=== PATIENT | female | born 1965 | race Caucasian/White ===

== ENCOUNTER 2020-02-07 12:00 | Outpatient (CLI) | payer OTHER, SELFPAY ==
--- NOTE | ~2020-02-07 | XR_ITS ---
XR sacroiliac joints min 3V DATE: 02/07/2020 13:52 INDICATION: Anti-COMPLEX DIRECTOR antibodies (Associated with lupus, other connective tissue diseases, edvin. mixed connective tissue disease). SS-A antibody (positive result consistent with connective tissue disease, including Sjogren syndrome, lupus erythematosus or rheumatoid arthritis). Arthralgia. Low back jailyn n radiating to left leg. TECHNIQUE: AP and bilateral oblique views COMPARISON: None FINDINGS: No fracture or dislocation is evident at the sacroiliac joints. There is some spurring at t he sacroiliac joints. There is sclerosis bilaterally consistent with osteitis condensans ilii. No ero sive changes or ankylosis. IMPRESSION: Degenerative change and osteitis condensans ilii Reviewed, dictated and finalized at Location [facility]. Reviewed, dictated and finalized at location A.
--- NOTE | 2020-02-07 14:18 | ECHO_ITS ---
Patient Info Name: Rosio Byrne Age: 54 years : 1965 Gender: Female Ht: 60 in Wt: 320 lbs BSA: 2.59 m2 HR: 69 bpm BP: 139 / 63 mmHg Technical Quality: Fair Exam Date: 02/07/2020 12:51 PM Exam Location: [facility] Patient Status: Outpatient Admit Date: 02/07/2020 Staff Ordering Physician: Domi Street DO Sports Medicine Specialist: Jocelin Villarreal RDCS Attending Provider: Domi Street DO Referring Physician: Yenifer RAMOS; Exam Type: CA echo dop color flow w con Study Info Indications I27.9 - Pulmonary heart disease, unspecified Complete two-dimensional, color flow and Doppler transthoracic echocardiogram is performed with contrast to opacify the left ventrical and to improve the deliniation of the left ventrical endocarial boarders. Contrast/Agitated Saline Contrast/Ag. Saline: Definity Amount: 9.00 ml IV Access Condition: patent with no signs of infiltration New IV Access: Antecubital Space and Left Site Condition: IV removed, No extravasation and Site dressing applied History/Risk Factors Hypertension: Yes Dyslipidemia: Yes Date of Last Tobacco Use: 02/07/2020 Tobacco Use: Current - Every Day If Any Current, Tobacco Type: Cigarettes If Current - Every Day \T\ Cigarettes, Amount: Light Tobacco Use (<10/day) Family History: Diabetes Mellitus Summary 1. Left ventricular chamber dimension is normal. 2. Definity contrast administered improved wall motion interpretation. 3. Left ventricular systolic function is normal, estimated at 60-65%. 4. There is moderately increased left ventricular wall thickness. 5. The left ventricular diastolic function is normal. 6. Tissue doppler is not performed. 7. The mitral valve has moderately calcified annulus. Recommendations * Smoking cessation counseling is recommended for this patient. Left Ventricle Tissue doppler is not performed. Definity contrast administered improved wall motion interpretation. Left ventricular chamber dimension is normal. Left ventricular systolic function is normal, estimated at 60-65%. There is moderately increased left ventricular wall thickness. The left ventricular diastolic function is normal. Right Ventricle Right ventricular chamber dimension is not well visualized. Left Atria Left atrial chamber dimension is normal. Right Atria Right atrial chamber dimension is not well visualized. Aortic Valve The aortic valve is trileaflet. There is no aortic valve stenosis. There is no aortic valve regurgitation. Pulmonic Valve The pulmonic valve is not well visualized. Mitral Valve The mitral valve has moderately calcified annulus. There is no mitral valve stenosis. There is no mitral valve regurgitation. Tricuspid Valve There is no tricuspid valve regurgitation. Pericardium/Pleural There is no pericardial effusion. Inferior Vena Cava Normal inferior vena cava with >50% collapse upon inspiration consistent with normal right atrial pressure, 5 mmHg. Aorta The aortic root size at the sinus of Valsalva is normal. Left Ventricular Outflow Tract Name Value Normal LVOT 2D LVOT Diameter 1.76 cm LV
== END 2020-02-07 12:01 | disposition home or self-care (01) ==
LOC: CHSIMG 12:01
PROVIDERS: PCP Family Medicine; Visit Provider Internal Medicine
DX: R76.8 Other specified abnormal immunological findings in serum (principal); M25.50 Pain in unspecified joint; Z15.89 Genetic susceptibility to other disease; M54.9 Dorsalgia, unspecified; G89.29 Other chronic pain
CPT/HCPCS: 72202; 94060; 94726; 94729; C8929

== ENCOUNTER 2020-03-22 11:07 | Outpatient (CLI) | payer OTHER, SELFPAY ==
--- NOTE | ~2020-03-22 | XR_ITS ---
EXAMINATION: XR shoulder RT min 2V DATE: 03/22/2020 11:24 INDICATION: Right shoulder pain. Lupus flareup. TECHNIQUE: AP internally and externally rotated, AP oblique externally rotated and transscapular Y vi ews of the right shoulder were obtained. COMPARISON: 08/05/2018 FINDINGS: Normal alignment. No fracture.Severe glenohumeral osteoarthritis with essentially [id number] appos ition and remodeling of the humeral head and acetabulum. Large marginal osteophytes along the inferio r humeral head. Mild acromioclavicular joint osteoarthritis. Visualized portions of the right lung ar e clear. Soft tissues are unremarkable. IMPRESSION: Severe right glenohumeral osteoarthritis and mild acromioclavicular osteoarthritis. Reviewed, dictated and finalized at location A. IMPRESSION: Severe right glenohumeral osteoarthritis and mild acromioclavicular osteoarthri tis.
== END 2020-03-22 11:08 | disposition home or self-care (01) ==
LOC: CHSLAB 11:09 → CHSIMG 11:12
PROVIDERS: PCP Family Medicine; Visit Provider Family Medicine
DX: M25.511 Pain in right shoulder (principal)
CPT/HCPCS: 73030

== ENCOUNTER 2020-03-23 08:56 | Outpatient (RCR) | payer OTHER, SELFPAY ==
--- NOTE | 2020-03-23 10:03 | PTOPEVAL ---
Thank you for referring Rosio Byrne to [facility]. Please review, sign, date and return this plan of care AYUSH. I agree with and certify that the following plan of care is medically necessary. Referring Physician Date Admitting Provider: Attending Provider: Ariel Rahman MD Referring Provider: *PT Outpatient Evaluation Start: 03/23/20 09:01 Freq: Status: Active Protocol: Document 03/23/20 09:00 J (Rec: 03/23/20 09:29 [facility] [id number]) Therapy Assessment Status Assessment Status Assessment Status Evaluation Outpatient Past Medical History Past Medical History Other Source of Past Medical History see patient intake form Cardiovascular History Hx Hypercholesterolemia Yes Hx Hypertension Yes Musculoskeletal History Hx Orthopedic Surgery Yes: carpal tunnel, Rt. elbow Psychosocial History Hx Depression Yes Evaluation Information Problem Diagnosis R shoulder pain Onset 03/18/20 Additional Evaluation Detail quick dash = 61% Subjective Information patient reports she has pain Query Text:As Reported By Patient/ in the R shoulder. she reports Family she has been told by her MD it is a flare up of arthritic pain in the shoulder. she reports she has a history of lupus. she reports the pain started and has gotten worse within the last 2 weeks. she reports the pain runs from a 4 -7/10 most of the time now. 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 she reports she has NTB in the R arm (to the wrist ). she reports shoulder pain pain is superior and posterior of the shoulder. Prior Level of Function Comments Additional Prior Level of Function patient reports prior to a few Comments weeks ago she always had a bit of pain, but was able to complete her daily activities. she reports she has some decreased mobility in the R shoulder. she reports a history of carpal and cubital back in March of last year. Pain Assessment Timing of Pain Assessment Timing of Pain Assessment Assessment Pain Scale Pain Scale Used Numeric (1 - 10) Self Report Pain Assessm
--- NOTE | 2020-04-06 09:10 | PCPTNOTE ---
patient cancelled appt today due to having a low grade fever. MELISSA
--- NOTE | 2020-04-20 09:12 | PCPTNOTE ---
patient called and cancelled appt due to not feeling well. MELISSA
--- NOTE | 2020-05-03 15:55 | PTOPEVAL ---
Thank you for referring Rosio Byrne to [facility]. Please review, sign, date and return this plan of care AYUSH. I agree with and certify that the following plan of care is medically necessary. Referring Physician Date Admitting Provider: Attending Provider: Ariel Rahman MD Referring Provider: *PT Outpatient Evaluation Start: 03/23/20 09:01 Freq: Status: Active Protocol: Document 05/03/20 10:00 JTF (Rec: 05/03/20 15:55 J [email or web address]) Therapy Assessment Status Assessment Status Assessment Status Re-evaluation Outpatient Past Medical History Past Medical History Other Source of Past Medical History see patient intake form Cardiovascular History Hx Hypercholesterolemia Yes Hx Hypertension Yes Musculoskeletal History Hx Orthopedic Surgery Yes: carpal tunnel, Rt. elbow Psychosocial History Hx Depression Yes Evaluation Information Problem Diagnosis R shoulder pain Additional Evaluation Detail quick dash = 59% Subjective Information patient reports she feels Query Text:As Reported By Patient/ alright this date. she Family reports she still has pain and popping in the R shoulder with lifting, especially overhead and behind back. she reports she is better, but still has increased pain with increased activities. she reports she is no longer working. Pain Assessment Timing of Pain Assessment Timing of Pain Assessment Assessment Pain Scale Pain Scale Used Numeric (1 - 10) Self Report Pain Assessment Right Shoulder(s) Reported Pain Level 5 Greatest Pain Intensity 7 Pain Score Pain Score 5: Self Report Upper Extremity Range of Motion General Upper Extremity Range of Motion Gross Upper Extremity Range of Motion R shoulder arom flexion = 135 Comments degrees R shoulder prom flexion = 150 degrees functional IR and ER reach unchanged since initial evaluation Upper Extremity Muscle Strength Testing General Upper Extremity Strength Gross Upper Extremity Strength Comments R shoulder flex = 4-/5, abd = 4-/5, er = 4/5, ir = 4+/5. PT Clinical Summary Clinical Summary Protocol: PTEVCODE PT Clinical Summary ms. byrne tolerates therapy well this date. she presents with pain still in the R sriram
--- NOTE | 2020-05-30 09:54 | PCPTNOTE ---
patient called and cancelled appt today due to being in er yesterday. MELISSA
== END 2020-06-07 10:31 | disposition home or self-care (01) ==
LOC: CHSPT 08:56
PROVIDERS: PCP Family Medicine; Visit Provider Family Medicine
DX: M25.511 Pain in right shoulder (principal)
CPT/HCPCS: 97014; 97110; 97161; G0283

== ENCOUNTER 2020-04-06 12:09 | Outpatient (CLI) | payer OTHER, SELFPAY ==
--- NOTE | ~2020-04-06 | XR_ITS ---
XR chest 2V 04/06/2020 12:56 Indication: Cough, shortness of breath and fever Procedure: PA and lateral views of the chest Comparison: Comparison to multiple prior studies sequentially, with oldest reviewed study dated 01/2016. Findings: There are mild bilateral perihilar interstitial infiltrates. Heart size is normal. No pleur al effusion or pneumothorax. No acute osseous abnormality. Impression: 1: Mild bilateral perihilar interstitial infiltrates which may represent mild edema or atypical pneum onia. Reviewed, dictated and finalized at location A. Impression: 1: Mild bilateral perihilar interstitial infiltrates which may represent mild e leanne or atypical pneumonia.
[2020-04-06 12:53] LABS: Basophils Absolute Auto 0.03 K/mm3 (0.00-0.10); Basophils Percent Auto 0.3 % (0.0-1.0); Eosinophils Absolute Auto 0.26 K/mm3 (0.02-0.50); Eosinophils Percent Auto 2.9 % (1.0-6.0); Hematocrit 39.9 % (35.0-49.0); Hemoglobin 13.3 g/dL (12.0-15.0); Immature Granulocyte Absolute 0.05 K/mm3 (0.00-0.00); Immature Granulocyte Percent A 0.5 % (0.0-0.0); Lymphocytes Absolute Auto 3.05 K/mm3 (1.10-4.50); Lymphocytes Percent Auto 33.4 % (18.0-42.0); Mean Corpuscular HGB Conc 33.3 g/dL (32.0-36.0); Mean Corpuscular Hemoglobin 30.5 pg (27.0-31.0); Mean Corpuscular Volume 91.5 fL (78.0-102.0); Mean Platelet Volume 8.9 fl (9.2-11.8); Monocytes Absolute Auto 0.63 K/mm3 (0.10-0.90); Monocytes Percent Auto 6.9 % (2.0-11.0); Neutrophils Absolute Auto 5.1 K/mm3 (1.7-7.2); Platelet Count Result 362 K/mm3 (150-420); Red Blood Count 4.36 M/mm3 (4.20-5.40); Red Cell Distribution Width 15.1 % (11.6-14.4); White Blood Count 9.1 K/mm3 (4.8-10.8)
[2020-04-06 13:05] LABS: Anion Gap 14.3 mmol/L (7-16); Blood Urea Nitrogen 20 mg/dL (7-18); Calcium 9.4 mg/dL (8.5-10.1); Carbon Dioxide 27 mmol/L (21-32); Chloride 104 mmol/L (98-108); Estimated Glomerular Filt Rate > 60; Glucose 103 mg/dL (70-99); Osmolality Calculated 294 mOsm/kg (285-295); Potassium 4.3 mmol/L (3.5-5.1); Sodium 141 mmol/L (136-145)
[2020-04-06 13:10] LABS: Influenza Control Valid (Valid)
== END 2020-04-06 12:10 | disposition home or self-care (01) ==
PROVIDERS: PCP Family Medicine; Visit Provider Family Medicine
DX: R05 Cough (principal)
CPT/HCPCS: 71046; 80048; 85025; 87804

== ENCOUNTER 2020-05-29 14:46 | Emergency (ER) | payer OTHER, SELFPAY ==
--- NOTE | ~2020-05-29 | CT_ITS ---
EXAMINATION: CT abdomen pelvis wo con DATE: 05/29/2020 17:12 INDICATION: Upper abdominal pain, nausea and vomiting TECHNIQUE: Computed tomography (CT) of the abdomen and pelvis was performed without intravenous contr ast. The dose-length product (DLP) was 1479.94 mGy-cm. Automated exposure control and iterative recon struction technique were employed. COMPARISON: 03/24/2018 FINDINGS: The lung bases are clear. The heart size is normal. Punctate calcifications in otherwise no rmal appearing liver and spleen likely represent healed granulomatous disease. The pancreas and gallb ladder are normal. Stable bilateral adrenal masses, measuring up to 2.4 cm on the left, are consisten t with adenomas. The kidneys are unremarkable. No stones are identified in the kidneys, ureters, or b ladder. There is no hydronephrosis or hydroureter. No pathologically enlarged abdominal or pelvic lym ph nodes are identified. There is no free intraperitoneal gas or evidence of bowel obstruction. The a ppendix is normal. There is severe lumbar spondylosis with chronic grade 2 anterolisthesis of L5 on S 1. A fat-containing umbilical hernia is noted. IMPRESSION: 1. No CT correlate for the patient's symptoms. Reviewed, dictated and finalized at location A.
[2020-05-29 15:21] VITALS: BP 167/85; PULSE 89; RESP 22; TEMP 36.8; O2SAT 96
--- NOTE | 2020-05-29 15:22 | ED.ABDPAIN ---
HPI - Abdominal Pain General Chief Complaint: Abdominal Pain Stated Complaint: vomiting, diarrhea, back pain, upper abd cramps Source: patient Mode of arrival: ambulatory Limitations: no limitations History of Present Illness HPI narrative: Patient states that she has been having abdominal discomfort since Friday afternoon. She has been having nausea and epigastric pain. She states it has been difficulty eating anything the pain does seem to get a little bit worse when she eats. Patient denies fevers chills cough shortness of breath. She has been eating and drinking okay. She does states she has been having some dysuria. Denies including frequency and low volume urinations with a feeling that she needs to urinate almost constantly. Patient has not had any chest pain shortness of breath sore throat or other symptoms. MD elicited complaint: abdominal pain Pain Consistency: constant Location: none Severity: mild Quality: sharp Radiation: epigastric Migration to: no migration Exacerbating factors: nothing Relieving factors: nothing Associated symptoms: nausea, vomiting and diarrhea Related Data Home Medications Medication Instructions Recorded Confirmed amlodipine 10 mg PO DAILY 10/24/19 05/29/20 atorvastatin 20 mg PO DAILY 10/24/19 05/29/20 citalopram 40 mg PO DAILY 10/24/19 05/29/20 doxazosin 1 mg PO DAILY 10/24/19 05/29/20 lisinopril-hydrochlorothiazide 1 tablet PO DAILY 10/24/19 05/29/20 metoprolol succinate 100 mg PO DAILY 10/24/19 05/29/20 aspirin 81 mg tablet,delayed 81 mg PO DAILY 12/02/19 05/29/20 release cholecalciferol (vitamin D3) 50 50 mcg PO DAILY 03/13/20 05/29/20 mcg (2,000 unit) capsule garlic 1,000 mg capsule 1,000 mg PO DAILY 03/13/20 05/29/20 potassium 99 mg tablet mg PO DAILY tablet 03/13/20 03/13/20 Allergies Allergy/AdvReac Type Severity Reaction Status Date / Time steven Allergy Severe SOB, Verified 12/06/19 13:38 THROAT SWELLING Sulfa (Sulfonamide Allergy Unknown Unknown Verified 12/06/19 13:38 Antibiotics) [place] Nut Allergy Severe SOB, Uncoded 12/06/19 13:38 THROAT SWELLING Review of Systems Constitutional: Constitutional: Reports as per HPI, Denies chills, Denies fatigue, Denies fever(s) and Denies weakness Eyes: Eyes: Reports as per HPI ENT: Reports system reviewed and no additional complaints, except as documented Cardiovascular: Cardiovascular: Reports as per HPI, Denies no additional cardiovascular complaints, Denies chest pain, Denies rapid heart rate, Denies radiating jaw, neck or arm pain and Denies slow heart rate Respiratory: Respiratory: Denies as per HPI, Denies no additional respiratory complaints, Denies chest congestion, Denies cough, Denies dyspnea and Denies wheezing Comments: Patient does have some chronic shortness of breath but it is unchanged from baseline. Gastrointestinal: Gastrointestinal: Reports abdominal pain, Denies bloating, Denies constipation, Denies heartburn, Reports diarrhea, Reports nausea and Reports vomiting Genitourinary: Genitourinary: Reports nocturia, Reports dysuria and Reports flank pain Musculoskeletal: Musculoskeletal: Reports no additional musculoskeletal complaints Neurologic: Reports system reviewed and no additional complaints, except as documented Psychiatric: Psychiatric: Reports no additional psychiatric complaints Endocrine: Endocrine: Reports no additional endocrine complaints Hematologic/Lymphatic: Hematologic/Lymphatic: Reports no additional hematologic/lymphatic complaints Allergic/Immunologic: Allergic/Immunologic: Reports no additional allergic/immunologic complaints [facility] Past Medical History Medical History Anxiety Cardiomegaly Depression Dyslipidemia Hypertension Intermittent palpitations Mixed hyperlipidemia Obstructive sleep apnea Other chest pain Surgical History Surgical History (Reviewed 05/29/20 @ 18:08 by Dez
--- NOTE | 2020-05-29 15:37 | ECG_ITS ---
Measurements Intervals [place] Rate: 60 P: 30 TN: 163 QRS: 5 QRSD: 85 T: 31 QT: 398 QTc: 400 Interpretive Statements SINUS RHYTHM BASELINE ARTIFACT- I, II, III, AVR, AVL NORMAL ECG Electronically Signed On 05-29-2020 15:57:55 CDT by Marcell Cristobal D.O.
[2020-05-29 15:42] LABS: Add Urine Microscopic? NO; Appearance Urine Clear (Clear); Bilirubin Urine Negative (Negative); Blood Urine Negative (Negative); Color Urine Yellow (Yellow); Glucose Urine UA Negative (Negative); Ketones Urine Negative (Negative); Leukocyte Esterase Ur Negative LEU/UL (Negative); Nitrate Urine Negative (Negative); Protein Urine Negative (Negative); Specific Grav Ur <= 1.005 (1.010-1.020); Urobilinogen Urine 0.2 mg/dL (0.2-1.0)
[2020-05-29] MEDS: ONDANSETRON INJ 4 MG/2 ML VIAL IV PUSH (15:43)
[2020-05-29] MEDS: LACTATED RINGERS 1,000 ML 999 ML IV CONT (15:43)
[2020-05-29 15:53] LABS: Basophils Absolute Auto 0.04 K/mm3 (0.00-0.10); Basophils Percent Auto 0.4 % (0.0-1.0); Eosinophils Absolute Auto 0.31 K/mm3 (0.02-0.50); Eosinophils Percent Auto 3.3 % (1.0-6.0); Hematocrit 42.7 % (35.0-49.0); Hemoglobin 14.2 g/dL (12.0-15.0); Immature Granulocyte Absolute 0.06 K/mm3 (0.00-0.00); Immature Granulocyte Percent A 0.6 % (0.0-0.0); Lymphocytes Absolute Auto 2.53 K/mm3 (1.10-4.50); Lymphocytes Percent Auto 26.7 % (18.0-42.0); Mean Corpuscular HGB Conc 33.3 g/dL (32.0-36.0); Mean Corpuscular Hemoglobin 30.1 pg (27.0-31.0); Mean Corpuscular Volume 90.7 fL (78.0-102.0); Mean Platelet Volume 8.9 fl (9.2-11.8); Monocytes Absolute Auto 0.73 K/mm3 (0.10-0.90); Monocytes Percent Auto 7.7 % (2.0-11.0); Neutrophils Absolute Auto 5.8 K/mm3 (1.7-7.2); Neutrophils Percent Auto 61.3 % (50.0-70.0); Platelet Count Result 378 K/mm3 (150-420); Red Blood Count 4.71 M/mm3 (4.20-5.40); Red Cell Distribution Width 14.4 % (11.6-14.4); White Blood Count 9.5 K/mm3 (4.8-10.8)
[2020-05-29 16:06] LABS: Alanine Aminotransferase 25 U/L (14-59); Albumin Level 3.4 g/dL (3.4-5.0); Alkaline Phosphatase 113 U/L (46-116); Anion Gap 13.2 mmol/L (7-16); Aspartate Amino Transferase 17 U/L (15-37); Bilirubin,Total 0.2 mg/dL (0.00-1.00); Blood Urea Nitrogen 11 mg/dL (7-18); Calcium 8.9 mg/dL (8.5-10.1); Carbon Dioxide 28 mmol/L (21-32); Chloride 100 mmol/L (98-108); Estimated Glomerular Filt Rate > 60; Glucose 106 mg/dL (70-99); Lipase 86 U/L (73-393); Osmolality Calculated 283 mOsm/kg (285-295); Potassium 4.2 mmol/L (3.5-5.1); Sodium 137 mmol/L (136-145); Total Protein 7.3 g/dL (6.4-8.2); Troponin I < 0.02 ng/mL (0.00-0.056)
[2020-05-29] MEDS: ACETAMINOPHEN 325 MG TABLET 650 MG PO (16:09)
--- NOTE | 2020-05-29 16:20 | ECG_ITS ---
Measurements Intervals [place] Rate: 81 P: 51 AK: 174 QRS: 84 QRSD: 84 T: 9 QT: 393 QTc: 457 Interpretive Statements SINUS RHYTHM BORDERLINE ST-T WAVE ABNORMALITY- INFERIOR LEADS BASELINE ARTIFACT- II, III, AVF, V4 BORDERLINE ECG Electronically Signed On 05-29-2020 17:05:29 CDT by Marcell Cristobal D.O.
[2020-05-29 18:00] VITALS: BP 169/83; PULSE 85; RESP 22; O2SAT 95
== END 2020-05-29 18:48 | disposition home or self-care (01) ==
PROVIDERS: Emergency Provider Emergency Medicine; PCP Family Medicine
DX: R10.13 Epigastric pain (principal); R11.0 Nausea
CPT/HCPCS: 36415; 74176; 80053; 81003; 83690; 84484; 85025; 93005; 96361; 96374; 99284; A9270; J2405; J7120

== ENCOUNTER 2020-05-30 10:49 | Outpatient (CLI) | payer OTHER, SELFPAY ==
--- NOTE | ~2020-05-30 | US_ITS ---
EXAMINATION: US right upper quadrant EXAM DATE: 05/30/2020 11:17 INDICATION: Right upper quadrant pain. TECHNIQUE: Multiple grayscale and Doppler images of the abdomen right upper quadrant were obtained (b y a technologist who performed the scan) and subsequently reviewed. Comparison is made to prior exami nation from 10/08/2016. FINDINGS: The pancreatic head and body are normal in appearance. The pancreatic tail is not visualized. There is echogenic liver parenchyma, hepatic steatosis. There are no focal liver lesions identified. Th ere is no evidence of intrahepatic biliary duct dilation. Portal venous flow was seen in the hepatop edal, normal direction and has normal Doppler waveform. No right-sided hydronephrosis. Common bile duct measures 4 mm, which is normal. The gallbladder wall is normal in thickness, with ex pected amount of distention. No sonographic evidence of pericholecystic fluid. There is no cholelit hiases. Technologist performing exam reports patient did not demonstrate sonographic Fernandez's sign. Please note that this sign is less reliable in patients who have received pain medication. IMPRESSION: 1. Hepatic steatosis. Reviewed, dictated and finalized at location B. IMPRESSION: 1. Hepatic steatosis.
== END 2020-05-30 10:50 | disposition home or self-care (01) ==
LOC: CHSIMG 10:51
PROVIDERS: PCP Family Medicine; Visit Provider Emergency Medicine
DX: R10.9 Unspecified abdominal pain (principal)
CPT/HCPCS: 76705

== ENCOUNTER 2020-06-14 08:34 | Outpatient (CLI) | payer OTHER, SELFPAY ==
--- NOTE | ~2020-06-14 | NM_ITS ---
NM hepatobiliary w pharm 06/14/2020 10:57 Procedure: Hepatobiliary scan performed following IV administration 5.3 mCi Tc 99m Choletec. At 60 m inutes 2.8 mcg CCK administered IV for evaluation of gallbladder ejection fraction. Indication: Right upper quadrant pain Comparison: Ultrasound dated 05/30/2020 Findings: There is normal radiotracer uptake in the liver parenchyma with prompt excretion into the b iliary tract. Gallbladder visualized at 35-40 minutes. Small bowel visualized at 20-25 minutes. G allbladder ejection fraction measures 25 %. (normal is considered 10-90%, but most patients with gall bladder dysfunction have GBEF of less than 35%) Impression: 1: Gallbladder ejection fraction below normal limits measuring 25%. Low GBEF is associated with gall bladder dysfunction, although not specific for acute or chronic cholecystitis. Reviewed, dictated and finalized at location B. Impression: 1: Gallbladder ejection fraction below normal limits measuring 25%. Low GBEF i s associated with gallbladder dysfunction, although not specific for acute or c hronic cholecystitis.
== END 2020-06-14 08:35 | disposition home or self-care (01) ==
PROVIDERS: PCP Family Medicine; Visit Provider Family Medicine
DX: R10.11 Right upper quadrant pain (principal)
CPT/HCPCS: 78227; A9537; J2805

== ENCOUNTER 2020-06-29 10:14 | Outpatient (CLI) | payer OTHER, SELFPAY ==
[2020-06-29 11:01] LABS: Cholesterol 128 mg/dL (0-200); HDL Direct 45 mg/dL (40-60); LDL Cholesterol Calculated 66 mg/dL (<130); Triglycerides 87 mg/dL (0-150)
== END 2020-06-29 10:15 | disposition home or self-care (01) ==
PROVIDERS: PCP Family Medicine; Visit Provider Internal Medicine Cardiovascular Disease
DX: E78.5 Hyperlipidemia, unspecified (principal)
CPT/HCPCS: 36415; 80061

== ENCOUNTER 2020-07-03 01:37 | Outpatient (CLI) | payer OTHER, SELFPAY ==
[2020-07-03 16:16] LABS: SARS-CoV-2 RNA PCR Negative
== END 2020-07-03 01:38 | disposition home or self-care (01) ==
LOC: ANHCOVIDDT 01:37
PROVIDERS: PCP Family Medicine; Visit Provider Specialist
DX: Z01.812 Encounter for preprocedural laboratory examination (principal); Z11.59 Encounter for screening for other viral diseases
CPT/HCPCS: 87635; C9803; U0003

== ENCOUNTER 2020-07-05 05:29 | Day surgery (SDC) | payer OTHER, SELFPAY ==
[2020-07-04 14:24] VITALS: BMI 62.6
[2020-07-05] VITALS (16 sets, daily range): BP systolic 121–169; BP diastolic 49–74; PULSE 64–79; RESP 12–21; TEMP 36.5–36.9; O2SAT 93–98
[2020-07-05 07:53] LABS: Basophils Absolute Auto 0.1 K/mm3 (0.0-0.1); Basophils Percent Auto 0.6 % (0.2-1.2); Eosinophils Absolute Auto 0.3 K/mm3 (0-0.3); Eosinophils Percent Auto 3.2 % (0-4.4); Hematocrit 41.7 % (37.0-47.0); Hemoglobin 13.6 g/dL (12.0-15.0); Immature Granulocyte Absolute 0.08 K/mm3 (0.00-0.031); Immature Granulocyte Percent A 0.8 % (0-0.5); Lymphocytes Absolute Auto 3.09 K/mm3 (0.9-3.2); Mean Corpuscular HGB Conc 32.6 g/dl (32-36); Mean Corpuscular Hemoglobin 29.8 pg (26-34); Mean Corpuscular Volume 91.4 fl (80-100); Mean Platelet Volume 9.2 fl (7.4-10.4); Monocytes Absolute Auto 0.7 K/mm3 (0.1-0.6); Monocytes Percent Auto 7.3 % (2.6-8.5); Neutrophils Absolute Auto 5.4 K/mm3 (1.3-6.7); Neutrophils Percent Auto 56.1 % (45.5-73.1); Platelet Count Result 281 k/mm3 (150-375); Red Blood Count 4.56 M/mm3 (4.2-5.4); Red Cell Distribution Width 14.8 % (11.5-14.5); White Blood Count 9.7 K/mm3 (4.5-10.0)
[2020-07-05 08:03] LABS: Anion Gap 14.1 mmol/L (7-16); Blood Urea Nitrogen 21 mg/dL (7-17); Calcium 9.1 mg/dL (8.4-10.2); Carbon Dioxide 23 mmol/L (22-30); Chloride 104 mmol/L (98-107); Estimated Glomerular Filt Rate > 60; Glucose 118 mg/dL (65-105); Potassium 4.1 mmol/L (3.4-5.0); Sodium 137 mmol/L (137-145)
--- NOTE | 2020-07-05 08:28 | WPDMODSED ---
Moderate Sedation Note-Pt Data Patient Data Diagnosis: Reported history of chest pain history of abnormal nuclear stress test October of 2019 morbid obesity preoperative evaluation prior to cholecystectomy Present Complaint: intermittent chest pain Procedure to be performed/Plan: left heart catheterization Allergies Allergy/AdvReac Type Severity Reaction Status Date / Time steven Allergy Severe SOB, Verified 06/26/20 15:18 THROAT SWELLING Sulfa (Sulfonamide AdvReac Intermediate Hives Verified 07/04/20 14:21 Antibiotics) [place] Nut Allergy Severe SOB, Uncoded 06/26/20 15:18 THROAT SWELLING pine fmaily Allergy Unknown sob Uncoded 06/26/20 15:18 Home Medications Medication Instructions Recorded Confirmed Type amlodipine 10 mg PO DAILY 10/24/19 07/04/20 History atorvastatin 20 mg PO DAILY 10/24/19 07/04/20 History citalopram 40 mg PO DAILY 10/24/19 07/04/20 History lisinopril-hydrochlorothiazide 2 tablet PO DAILY 10/24/19 07/04/20 History metoprolol succinate 100 mg PO DAILY 10/24/19 07/04/20 History aspirin 81 mg tablet,delayed 81 mg PO DAILY 12/02/19 07/04/20 History release cholecalciferol (vitamin D3) 50 50 mcg PO DAILY 03/13/20 07/04/20 History mcg (2,000 unit) capsule potassium 99 mg tablet 99 mg PO DAILY tablet 03/13/20 07/04/20 History ondansetron 4 mg PO Q8H PRN #20 tablet 05/29/20 07/04/20 Rx doxazosin 1 mg tablet 2 mg PO DAILY tablet 06/26/20 07/04/20 History pantoprazole 20 mg PO DAILY 07/04/20 07/04/20 History Current Medications: Active Medications Sodium Chloride (Normal Saline Iv) 500 mls @ 100 mls/hr IV CONT .Q5H CHARLENE Sedation/Anesthesia: No previous sedation/anesthesia problems (including family history). [facility] Social History Social History Smoking packs per day: 1 Smoking cigarettes per day: 20.0 Years smoked: 20 Smoking pack-years: 20.00 Smoking status: Current every day smoker Tobacco type: cigarettes Second hand tobacco smoke exposure: No Alcohol intake: never Substance use: never Living arrangements: alone Gender identity (if verbalized by the patient): Female Spiritual care concerns: No Mod Sed Physical Exam Physical Exam Pre Procedural Exam: Normal: Neck, Throat, Airway, Lungs, Heart Rate, Heart Rhythm and Extremities and Variation: Appearance ( massively obese white female) and Heart Size ( PMI not palpable) Hours since solid foods: 12 Hours since liquid intake: 12 Internal Medicine - PN: Obj Da Vital Signs Vital Signs: Vital Signs - 24 hr 07/05/20 07:20 Temperature 36.5 C Pulse Rate 75 Respiratory Rate 16 Blood Pressure 153/73 H Pulse Oximetry 96 Meds/Results Medications: Active Medications Generic Name Dose Route Start Last Admin Trade Name Freq PRN Reason Stop Dose Admin Sodium Chloride 500 mls @ 100 mls/hr 07/05/20 06:05 Normal Saline Iv IV CONT .Q5H CHARLENE Labs CBC & Chem 7: 07/05/20 07:13 07/05/20 07:13 Labs: Laboratory Results - last 24 hr 07/05/20 07/05/20 07:13 07:13 WBC 9.7 RBC 4.56 Hgb 13.6 Hct 41.7 MCV 91.4 MCH 29.8 MCHC 32.6 RDW 14.8 H Plt Count 281 MPV 9.2 Immature Gran % (Auto) 0.8 H Neut % (Auto) 56.1 Lymph % (Auto) 32.0 [place] % (Auto) 7.3 Eos % (Auto) 3.2 Baso % (Auto) 0.6 Lymph # (Auto) 3.09 [place] # (Auto) 0.7 H Eos # (Auto) 0.3 Baso # (Auto) 0.1 Abs Immat Gran (auto) 0.08 H Absolute Neuts (auto) 5.4 Absolute Nucleated RBC 0.0 Nucleated RBC % 0.0 Sodium 137 Potassium 4.1 Chloride 104 Carbon Dioxide 23 Anion Gap 14.1 BUN 21 H Creatinine 0.80 Estim Creat Clear Calc Not Reportable Estimated GFR > 60 Glucose 118 H Calcium 9.1 ASA Classification/Sedation ASA Classification/Sedation ASA Class: III Emergent: No Risks: Risks, benefits and alternatives explained and patient/family accepted plan
--- NOTE | 2020-07-05 09:41 | P.PCNCC_ITS ---
Cardiac Cath Procedure Note Date of procedure:: 07/05/20 Performing physician:: Zachary Holt MD Indication:: Atypical chest pain syndrome abnormal nuclear stress test morbid obesity preop evaluation prior to noncardiac surgery Brief clinical history:: this is a 54-year-old woman without a previous history of coronary disease. She has been experiencing intermittent episodes of chest pain that are atypical of angina. Nuclear stress test was done in the 2018 which was abnormal in the anterior wall. She is now anticipating noncardiac surgery and in the setting and angiogram has been requested Procedure Procedure performed:: left heart catheterization with left ventriculography and coronary angiography Sedation/Medication given:: no sedation administered because of massive obesity Access site:: right femoral artery Estimated blood loss:: 15 cc Procedure note:: patient was brought to the cardiac catheterization lab in the postabsorptive state the right femoral triangle was prepared in the usual fashion anesthesia was provided with 1% lidocaine infiltrated locally. Using modified Seldinger technique femoral artery was punctured and a long 5 [place] sheath was placed for vascular access. I chose a long sheath because of significant obesity. Following achievement of arterial access left heart catheterization was carried out a 5 [place] angled pigtail catheter was used to measure left-sided hemodynamics and to engage the left ventriculogram in the BOATENG projection. Following this the pigtail catheter was withdrawn and a 5 [place] FL4 catheter was used to engage inject the coronary artery. Following this a 5 [place] JR4 catheter was used to engage inject the right coronary artery. Cineangiograms were reviewed the femoral artery was studied with angiographically through the sheath after which was determined that she would be removed with direct compression. 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 Findings:: Hemodynamics: Central aortic pressure 162/74. Left ventricle 164 over 70 end-diastolic pressure 16. There is no systolic gradient upon pullback across the aortic valve. Left ventricle: The LV is modestly enlarged and concentrically hypertrophied contractility is preserved in all segments ejection fraction is 50-55% by visual estimation the left main coronary artery is short and widely patent the left anterior descending is a moderate caliber artery extending down to around the apex. The diagonal branches of the LAD are angiographically small. There is minimal luminal irregularity noted in the proximal 3rd of the LAD there is no significant atherosclerotic disease which would explain nuclear stress test findings. the circumflex is a moderate caliber artery giving rise to the marginal branches the circumflex system is smooth and angiographically normal in appe arance right coronary artery is moderate caliber and dominant to the posterior circulation of the RCA is smooth and angiographically normal in appearance Conclusion:: 1. right coronary dominant circulation with no significant CAD 2. left ventricular hypertrophy with good systolic contractility 3. based on these findings the stress test from October of 2019 appears to be a false-positive Zachary Holt MD FACC
== END 2020-07-05 17:02 | disposition home or self-care (01) ==
PROVIDERS: PCP Family Medicine; Visit Provider Specialist
PROC: 4A023N7 Measurement of Cardiac Sampling and Pressure, Left Heart, Percutaneous Approach (ICD-10-PCS; CPT 93452; principal; 2020-07-05 08:30)
DX: Z01.810 Encounter for preprocedural cardiovascular examination (principal); R07.89 Other chest pain; R94.39 Abnormal result of other cardiovascular function study; F17.210 Nicotine dependence, cigarettes, uncomplicated; Z79.82 Long term (current) use of aspirin
CPT/HCPCS: 36415; 80048; 85025; 93458; C1887; C1894; J1644; J2250; J3010

== ENCOUNTER 2020-10-01 17:02 | Emergency (ER) | payer OTHER, SELFPAY ==
--- NOTE | ~2020-10-01 | XR_ITS ---
XR ankle LT min 3V 10/01/2020 18:00 Indication: Syncope. Ankle pain. Procedure: 4 views left ankle Comparison: 08/16/2019 Findings: There are degenerative changes of the ankle. Prominent degenerative calcaneal enthesophytes . No acute fracture or traumatic malalignment. There are loose bodies adjacent to the joint space. Ta lar dome is normal. Impression: 1: No acute bone or joint abnormality. Reviewed, dictated and finalized at location A. L MACHINE BINDERY OPERATOR Impression: 1: No acute bone or joint abnormality.
--- NOTE | ~2020-10-01 | CT_ITS ---
EXAMINATION: CT BRAIN W/O DATE: 10/01/2020 18:58 INDICATION: Syncope TECHNIQUE: Computed tomography (CT) of the head was performed without intravenous contrast. The dose- length product was 605.33 mGy-cm. The mA was adjusted according to patient size. Iterative reconstruc tion technique was employed. COMPARISON: CT dated 07/15/2014 FINDINGS: Normal brain parenchymal volume for age. Normal johnson-white differentiation. No acute intrac ranial hemorrhage, infarction, mass or mass effect. No ventriculomegaly or midline shift. Midline sagittal images demonstrate a normal corpus callosum, c raniovertebral junction and sella turcica. Basilar cisterns are patent. Paranasal sinuses and mastoids are pneumatized. No depressed skull fractures. IMPRESSION: 1. No acute intracranial abnormality. Reviewed, dictated and finalized at location A. SPREADER
--- NOTE | ~2020-10-01 | XR_ITS ---
XR hip LT 2V w AP pelvis 10/01/2020 18:00 Indication: Left hip pain Procedure: AP pelvis and 3 views left hip Comparison: 02/07/2020 Findings: There is mild bilateral symmetric osteoarthritis of the hips. There is advanced lower lumba r spondylosis. There are degenerative changes of the sacroiliac joints. No fracture or traumatic arcadio lignment. Impression: 1: No acute bone or joint abnormality. Reviewed, dictated and finalized at location A. R OPERATOR Impression: 1: No acute bone or joint abnormality.
--- NOTE | ~2020-10-01 | XR_ITS ---
EXAMINATION: XR chest 2V 10/01/2020 17:59 INDICATION: Syncope PROCEDURE: AP and lateral views of the chest COMPARISON: No prior studies for comparison. FINDINGS: The lungs are clear. The cardiomediastinal silhouette is within normal limits. There are no pleural effusions. There is no pneumothorax suspected. IMPRESSION: 1: NO ACUTE CARDIOPULMONARY DISEASE. Reviewed, dictated and finalized at location A. ONENT PREP OPERATOR
--- NOTE | 2020-10-01 17:10 | ED.DIZZY ---
HPI - Dizziness General Chief Complaint: Dizziness Stated Complaint: ambulance Time Seen by Provider: 10/01/20 17:10 Source: patient Mode of arrival: EMS Limitations: no limitations History of Present Illness HPI Narrative: 55-year-old woman comes emergency department by EMS after having an episode where she felt dizzy, fevers, chilled, pins and needles in her extremities and then fell to the ground. Occurred just prior to arrival. She thinks she might have been unconscious for a few minutes (<5) but she is not certain. She states that she got up and helped herself to the chair by the time EMS got there. She denies shortness of breath, chest pressure, chest pain, nausea, vomiting or recent illness prior to this incident. She complains of mild shortness of breath and a headache at present. She states that she has pain in her left hip in her left ankle. Denies chest pain, chest pressure, nausea, vomiting, cough, sputum production, cold symptoms, or abdominal pain. MD elicited complaint: dizziness Onset (ago): minute(s) (30) Timing: sudden onset Severity: moderate Description: lightheadedness Context: change in body position (sitting to standing) History of similar symptoms: No Relieving factors: lying down Associated symptoms: fever and chills Related Data Home Medications Medication Instructions Recorded Confirmed amlodipine 10 mg PO DAILY 10/24/19 10/01/20 atorvastatin 20 mg PO DAILY 10/24/19 10/01/20 citalopram 40 mg PO DAILY 10/24/19 10/01/20 lisinopril-hydrochlorothiazide 2 tablet PO DAILY 10/24/19 10/01/20 metoprolol succinate 100 mg PO DAILY 10/24/19 10/01/20 potassium 99 mg tablet 99 mg PO DAILY tablet 03/13/20 10/01/20 doxazosin 1 mg tablet 2 mg PO DAILY tablet 06/26/20 10/01/20 pantoprazole 20 mg PO DAILY 07/04/20 10/01/20 gabapentin 100 mg PO BID 10/01/20 10/01/20 ropinirole 1 mg PO HS 10/01/20 10/01/20 Allergies Allergy/AdvReac Type Severity Reaction Status Date / Time pine nut Allergy Severe Swelling Verified 10/01/20 17:16 of Lip/Tongue/Throat steven Allergy Severe Swelling Verified 10/01/20 17:16 of Lip/Tongue/Throat Sulfa (Sulfonamide Allergy Intermediate Hives Verified 10/01/20 17:17 Antibiotics) Review of Systems Constitutional: Constitutional: Reports chills and Reports fever(s) ENT: Denies dysphagia, Denies nasal congestion and Denies sore throat Cardiovascular: Cardiovascular: Denies chest pain and Denies radiating jaw, neck or arm pain Respiratory: Respiratory: Denies cough, Reports dyspnea and Denies wheezing Gastrointestinal: Gastrointestinal: Denies abdominal pain, Denies diarrhea, Denies nausea and Denies vomiting Genitourinary: Genitourinary: Denies hematuria, Denies nocturia, Denies dysuria and Denies urinary incontinence Musculoskeletal: Musculoskeletal: Reports as per HPI, Reports arthralgias, Denies joint swelling and Denies muscle cramps Integumentary/Breasts: Skin/Breast: Denies pruritus, Denies erythema and Denies rash Neurologic: Reports as per HPI, Denies vertigo, Denies dizziness and Reports syncope Hematologic/Lymphatic: Hematologic/Lymphatic: Denies easy bleeding and Denies easy bruising Allergic/Immunologic: Allergic/Immunologic: Denies lip swelling and Denies tongue swelling [facility] Past Medical History Medical History (Updated 10/01/20 @ 19:01 by Jenaro Jensen MD) Anxiety Cardiomegaly Depression Dyslipidemia Hypertension Intermittent palpitations Lupus Mixed hyperlipidemia Obstructive sleep apnea Other chest pain Surgical History Surgical History H/O elbow surgery H/O oral surgery History of carpal tunnel release S/P cubital tunnel release S/P trigger finger release Family History Family History Father Heart disease ALS (amyotrophic lateral sclerosis) Graves disease Hypertension Mother Heart diseas
[2020-10-01 17:12] VITALS: BP 138/71; PULSE 77; RESP 20; TEMP 37.1; O2SAT 98
--- NOTE | 2020-10-01 17:17 | ECG_ITS ---
Measurements Intervals [place] Rate: 67 P: 31 DC: 188 QRS: 60 QRSD: 91 T: 30 QT: 405 QTc: 430 Interpretive Statements SINUS RHYTHM NONSPECIFIC ST ELEVATION- ANTERIOR LEADS BASELINE ARTIFACT- I, II, III, AVR, AVL, AVF, V4-V5 BORDERLINE ECG Electronically Signed On 10-02-2020 7:24:23 BOTTLE INSPECTOR by Marcell Cristobal D.O.
[2020-10-01] MEDS: SODIUM CHLORIDE 0.9% IV 1,000 ML 999 ML IV CONT (17:33)
[2020-10-01 18:09] LABS: Basophils Absolute Auto 0.03 K/mm3 (0.00-0.10); Basophils Percent Auto 0.3 % (0.0-1.0); Eosinophils Absolute Auto 0.26 K/mm3 (0.02-0.50); Hematocrit 41.2 % (35.0-49.0); Hemoglobin 13.2 g/dL (12.0-15.0); Immature Granulocyte Absolute 0.06 K/mm3 (0.00-0.00); Immature Granulocyte Percent A 0.7 % (0.0-0.0); Lymphocytes Absolute Auto 2.62 K/mm3 (1.10-4.50); Lymphocytes Percent Auto 30.3 % (18.0-42.0); Mean Corpuscular Hemoglobin 29.3 pg (27.0-31.0); Mean Corpuscular Volume 91.4 fL (78.0-102.0); Monocytes Absolute Auto 0.57 K/mm3 (0.10-0.90); Monocytes Percent Auto 6.6 % (2.0-11.0); Neutrophils Absolute Auto 5.1 K/mm3 (1.7-7.2); Neutrophils Percent Auto 59.1 % (50.0-70.0); Platelet Count Result 350 K/mm3 (150-420); Red Blood Count 4.51 M/mm3 (4.20-5.40); White Blood Count 8.7 K/mm3 (4.8-10.8)
[2020-10-01 18:24] VITALS: BP 143/72; PULSE 72
[2020-10-01 18:25] VITALS: BP 144/64; BP 180/92; PULSE 72; PULSE 75
[2020-10-01 18:26] LABS: BNP 24.6 pg/mL (0-100)
[2020-10-01 18:27] LABS: Lactic Acid Reflex 1.1 mmol/L (0.4-2.0)
[2020-10-01 18:28] LABS: Alanine Aminotransferase 25 U/L (14-59); Albumin Level 3.3 g/dL (3.4-5.0); Alkaline Phosphatase 122 U/L (46-116); Anion Gap 7 mmol/L (8-16); Aspartate Amino Transferase 13 U/L (15-37); Bilirubin,Total 0.2 mg/dL (0.00-1.00); Blood Urea Nitrogen 25 mg/dL (7-18); Calcium 8.7 mg/dL (8.5-10.1); Carbon Dioxide 30 mmol/L (21-32); Chloride 102 mmol/L (98-108); Estimated Glomerular Filt Rate 50; Glucose 107 mg/dL (70-99); Osmolality Calculated 292 mOsm/kg (285-295); Potassium 4.1 mmol/L (3.5-5.1); Sodium 139 mmol/L (136-145); Total Protein 7.3 g/dL (6.4-8.2)
[2020-10-01 18:30] LABS: Add Urine Microscopic? NO; Appearance Urine Clear (Clear); Bilirubin Urine Negative (Negative); Blood Urine Negative (Negative); Color Urine Yellow (Yellow); Glucose Urine UA Negative (Negative); Ketones Urine Negative (Negative); Leukocyte Esterase Ur Negative LEU/UL (Negative); Nitrate Urine Negative (Negative); Protein Urine Negative (Negative); Urobilinogen Urine 0.2 mg/dL (0.2-1.0); pH Urine 5.5 (5.0-8.0)
[2020-10-01 18:30] LABS: Troponin I < 0.02 ng/mL (0.00-0.056)
== END 2020-10-01 19:26 | disposition home or self-care (01) ==
PROVIDERS: Emergency Provider Emergency Medicine; PCP Family Medicine
DX: R55 Syncope and collapse (principal); R06.02 Shortness of breath; I51.7 Cardiomegaly; I10 Essential (primary) hypertension; R00.2 Palpitations; E78.5 Hyperlipidemia, unspecified; F32.9 Major depressive disorder, single episode, unspecified; F17.210 Nicotine dependence, cigarettes, uncomplicated
CPT/HCPCS: 36415; 70450; 71046; 73502; 73610; 80053; 81003; 83605; 83880; 84484; 85025; 93005; 96360; 99284; J7030

== ENCOUNTER 2021-06-13 08:23 | Outpatient (CLI) | payer OTHER, SELFPAY ==
[2021-06-13 09:04] LABS: Basophils Absolute Auto 0.05 K/mm3 (0.00-0.10); Basophils Percent Auto 0.4 % (0.0-1.0); Eosinophils Absolute Auto 0.44 K/mm3 (0.02-0.50); Eosinophils Percent Auto 3.9 % (1.0-6.0); Hematocrit 40.5 % (35.0-49.0); Hemoglobin 13.1 g/dL (12.0-15.0); Immature Granulocyte Absolute 0.14 K/mm3 (0.00-0.00); Immature Granulocyte Percent A 1.3 % (0.0-0.0); Lymphocytes Absolute Auto 3.59 K/mm3 (1.10-4.50); Lymphocytes Percent Auto 32.1 % (18.0-42.0); Mean Corpuscular HGB Conc 32.3 g/dL (32.0-36.0); Mean Corpuscular Hemoglobin 29.3 pg (27.0-31.0); Mean Corpuscular Volume 90.6 fL (78.0-102.0); Mean Platelet Volume 8.6 fl (9.2-11.8); Monocytes Absolute Auto 0.71 K/mm3 (0.10-0.90); Monocytes Percent Auto 6.4 % (2.0-11.0); Neutrophils Absolute Auto 6.3 K/mm3 (1.7-7.2); Neutrophils Percent Auto 55.9 % (50.0-70.0); Platelet Count Result 333 K/mm3 (150-420); Red Blood Count 4.47 M/mm3 (4.20-5.40); Red Cell Distribution Width 15.8 % (11.6-14.4); White Blood Count 11.2 K/mm3 (4.8-10.8)
[2021-06-13 09:52] LABS: SARS-CoV-2 RNA PCR Negative (Negative)
[2021-06-13 11:30] LABS: Alanine Aminotransferase 35 U/L (14-59); Albumin Level 3.3 g/dL (3.4-5.0); Alkaline Phosphatase 143 U/L (46-116); Anion Gap 11 mmol/L (8-16); Aspartate Amino Transferase 14 U/L (15-37); Bilirubin,Total 0.2 mg/dL (0.00-1.00); Blood Urea Nitrogen 25 mg/dL (7-18); Calcium 9.2 mg/dL (8.5-10.1); Carbon Dioxide 29 mmol/L (21-32); Chloride 101 mmol/L (98-108); Cholesterol 107 mg/dL (0-200); Creatine Kinase 37 U/L (26-192); Estimated Glomerular Filt Rate 58; Glucose 169 mg/dL (70-99); HDL Direct 37 mg/dL (40-60); LDL Cholesterol Calculated 52 mg/dL (<130); Osmolality Calculated 300 mOsm/kg (285-295); Potassium 4.5 mmol/L (3.5-5.1); Sodium 141 mmol/L (136-145); Thyroid Stimulating Hormone 1.18 uIU/mL (0.36-3.74); Total Protein 6.7 g/dL (6.4-8.2); Triglycerides 92 mg/dL (0-150)
[2021-06-14 09:23] LABS: Hemoglobin A1C 7.8 % (<5.7)
== END 2021-06-13 08:24 | disposition home or self-care (01) ==
LOC: CHSLAB 08:26
PROVIDERS: PCP Family Medicine; Visit Provider Family Medicine
DX: R19.7 Diarrhea, unspecified (principal); I10 Essential (primary) hypertension; E78.2 Mixed hyperlipidemia; R50.9 Fever, unspecified; Z20.822 Contact with and (suspected) exposure to COVID-19; R73.01 Impaired fasting glucose
CPT/HCPCS: 36415; 80053; 80061; 82550; 83036; 84443; 85025; C9803; U0003; U0005

== ENCOUNTER 2022-02-07 07:55 | Outpatient (CLI) | payer OTHER, SELFPAY ==
[2022-02-07 08:19] LABS: Basophils Absolute Auto 0.05 K/mm3 (0.00-0.10); Basophils Percent Auto 0.4 % (0.0-1.0); Eosinophils Percent Auto 4.4 % (1.0-6.0); Hematocrit 38.8 % (35.0-49.0); Hemoglobin 12.3 g/dL (12.0-15.0); Immature Granulocyte Absolute 0.11 K/mm3 (0.00-0.00); Lymphocytes Absolute Auto 3.49 K/mm3 (1.10-4.50); Lymphocytes Percent Auto 30.4 % (18.0-42.0); Mean Corpuscular HGB Conc 31.7 g/dL (32.0-36.0); Mean Corpuscular Hemoglobin 29.6 pg (27.0-31.0); Mean Corpuscular Volume 93.5 fL (78.0-102.0); Mean Platelet Volume 8.6 fl (9.2-11.8); Monocytes Absolute Auto 0.65 K/mm3 (0.10-0.90); Monocytes Percent Auto 5.7 % (2.0-11.0); Neutrophils Absolute Auto 6.7 K/mm3 (1.7-7.2); Neutrophils Percent Auto 58.1 % (50.0-70.0); Platelet Count Result 376 K/mm3 (150-420); Red Blood Count 4.15 M/mm3 (4.20-5.40); Red Cell Distribution Width 15.3 % (11.6-14.4); White Blood Count 11.5 K/mm3 (4.8-10.8)
[2022-02-07 08:24] LABS: Hemoglobin A1C 6.8 % (<5.7)
[2022-02-07 09:05] LABS: Alanine Aminotransferase 27 U/L (14-59); Albumin Level 3.2 g/dL (3.4-5.0); Alkaline Phosphatase 110 U/L (46-116); Anion Gap 13 mmol/L (8-16); Aspartate Amino Transferase 15 U/L (15-37); Bilirubin,Total 0.2 mg/dL (0.00-1.00); Blood Urea Nitrogen 18 mg/dL (7-18); Calcium 8.7 mg/dL (8.5-10.1); Carbon Dioxide 27 mmol/L (21-32); Chloride 101 mmol/L (98-108); Cholesterol 84 mg/dL (0-200); Estimated Glomerular Filt Rate 52; Glucose 109 mg/dL (70-99); HDL Direct 34 mg/dL (40-60); LDL Cholesterol Calculated 30 mg/dL (<130); Osmolality Calculated 294 mOsm/kg (285-295); Potassium 3.9 mmol/L (3.5-5.1); Sodium 141 mmol/L (136-145); Total Protein 6.8 g/dL (6.4-8.2); Triglycerides 101 mg/dL (0-150)
== END 2022-02-07 07:56 | disposition home or self-care (01) ==
LOC: CHSLAB 07:58
PROVIDERS: PCP Family Medicine; Visit Provider Family Medicine
DX: E11.9 Type 2 diabetes mellitus without complications (principal); E78.2 Mixed hyperlipidemia
CPT/HCPCS: 36415; 80053; 80061; 83036; 85025